=== PATIENT | male | born 2005 | race Caucasian/White ===

== ENCOUNTER 2024-09-20 13:33 | Emergency (ER) | payer SELFPAY ==
[2024-09-20 13:37] VITALS: BP 113/71
--- NOTE | 2024-09-20 15:25 | ED.MUSCINJ ---
HPI-Injury
General
Chief Complaint: Musculo-Skeletal Complaint
Source: patient
Exam Limitations: none
Time Seen by Provider: 09/20/24 15:00
Nursing documentation reviewed up to this point in time: agreed with
History of Present Illness-Injury
Initial Injury comments:
19-year-old male with no significant past medical history states he used to run on a regular basis but has not run in over 6 months. Yesterday he decided to start running again and wanted to do 13 miles. He did 6 miles and developed right foot
pain and by mild 9 he could barely walk. He is ambulating well but 'I just want to make sure there is nothing wrong with the bones in my foot.'
Past History
Past History
ED Past Medical History: None
ED Past Surgical History: None
Social History
Tobacco: Non-smoker
Alcohol: Occasional
Personal: Single
Living: with family
Employment: Employed
Review of Systems
Review of Systems
Allergies reviewed?: Yes
All Other Systems: ROS reviewed and negative except as documented in HPI and ROS
Musculoskeletal: Reports other (Pain lateral aspect of right foot.)
Skin: Reports no symptoms
Phy Exam
Physical Exam
Physical Exam:
PHYSICAL EXAMINATION:
General: no apparent distress, not acutely ill
Neuro: alert and oriented.
Psychiatric: well kept. interactive and cooperative
Musculoskeletal: Mild tenderness instep of foot and along lateral aspect. No significant bony tenderness. No swelling, no redness, no bony tenderness, rather tender plantar ST lateral aspect of foot. Moves with ease
Skin: Warm, pink.
Injury Course
Orders/Labs/Results
Orders:
Orders
09/20/24 13:38
Foot, Right 3 View [CR Foot - Right Min 3 Views] Urgent
Comment:
Reason For Exam: pain after running
MDM/Problems Addressed
Differential Diagnosis Includes:
Soft tissue injury right foot, stress fracture
MDM/Problems Addressed:
19-year-old male with no significant past medical history states he used to run on a regular basis but has not run in over 6 months. Yesterday he decided to start running again and wanted to do 13 miles. He did 6 miles and developed right foot
pain and by mild 9 he could barely walk. He is ambulating well but 'I just want to make sure there is nothing wrong with the bones in my foot.'
X-ray of left foot initially read by this examiner: No acute bony abnormality noted.
Upon discharge, patient ambulated out with brisk gait and minimal limp
*Critical Care Note
Total Time (30-74mins, 75-104mins- exclusive of procedures): Not Applicable
ED Attending Note
-
Portions of this chart may have been created with voice recognition software.� Occasional wrong word or��sound alike� substitutions may have occurred due to the inherent limitations of voice recognition software.
Discharge Plan
Departure
Patient Disposition: Home (Routine Discharge)
Date of Disposition: 09/20/24
Time of Disposition: 15:24
Patient with high blood pressure during this ER visit?: No
Condition: Good
Discharge Problem:
Soft tissue injury of right foot
Instructions: Foot sprain
Prescriptions:
No Action
No Current Medications
0
Referrals:
Enma Sellers I., DO [Active, Orthopedics] - As needed
Activity Restrictions/Additional Instructions:
As we discussed, your x-ray shows nothing abnormal.
This is most likely a sprain/strain of your foot soft tissues, may be plantar fasciitis
See your orthopedic doctor if your foot is not a lot better in 1 week or not 100% better in 3 weeks.
Avoid high-level activity until the foot is better.
Interventions
Interventions:
*Risk Screen - Suicide Last Done: 09/20/24 13:37
*General Assessment Last Done: 09/20/24 15:02
*Neglect/Abuse Screening Last Done: 09/20/24 15:02
*ED- Fall Risk Assessment Last Done: 09/20/24 15:02
*Nursing Disposition Last Done: 09/20/24 15:37
ED-Musculoskeletal Assessment Last Done: 09/20/24 15:02
Discharge Date and Time
Print Language: SYRIAC
== END 2024-09-20 15:37 | disposition home or self-care (01) ==
LOC: EMR 13:33
PROVIDERS: EMERGENCY PHYSICIAN Emergency Medicine
DX: S99.921A Unspecified injury of right foot, initial encounter (principal); X58.XXXA Exposure to other specified factors, initial encounter; Y93.02 Activity, running
CPT/HCPCS: 99283; 73630